=== PATIENT | male | born 1950 | race Caucasian/White ===

== ENCOUNTER 2017-11-01 11:53 | Emergency (ER) | payer MEDICARE, OTHER ==
[2017-11-01 12:06] VITALS: BP 138/72
--- NOTE | 2017-11-01 18:41 | ED ---
Roxy Fernandez Thomas, scribed for Mukund Salazar MD on 11/01/17 at 1304 . Influenza-Like Illness - HPI Summary HPI Summary: The patient is a 67 year old male complaining of a cough, erythematous eyes, and nasal discharge for the last week. The patient additionally complains of ear congestion. The patient had an episode of vomiting four days ago. The patient denies sore throat, nausea, ear pain, and diarrhea. He was treated for conjunctivitis four weeks ago. He is from [place]. - History of Current Complaint Chief Complaint: EDFluSymptoms Time Seen by Provider: 11/01/17 12:30 Hx Obtained From: Patient Onset/Duration: Lasting Weeks - 1, Still Present Severity: Moderate Associated Signs & Symptoms: Negative - sore throat, nausea, ear pain, diarrhea PMH/Surg Hx/FS Hx/Imm Hx Sensory History: Denies: Hx Legally Blind EENT History: Denies: Hx Deafness Infectious Disease History: No Infectious Disease History: Denies: Traveled Outside the in Last 30 Days - Family History Known Family History: Positive: Cardiac Disease - father [place] - Social History Alcohol Use: Rare Substance Use Type: Reports: None Smoking Status (MU): Never Smoked Tobacco Review of Systems Positive: Erythema Positive: Nasal Discharge. Negative: Sore Throat, Ear Ache Positive: Cough Positive: Vomiting. Negative: Diarrhea, Nausea All Other Systems Reviewed And Are Negative: Yes Physical Exam - Summary Physical Exam Summary: Appearance: The patient is well-nourished in no acute distress and in no acute pain. Skin: The skin is warm and dry and skin color reflects adequate perfusion. HEENT: The head is normocephalic and atraumatic. The pupils are equal and reactive. The conjunctivae are injected. Nares are patent and with nasal congestion. Mouth reveals moist mucous membranes and the throat is without erythema and exudate. The external ears are intact. The ear canals are patent and without drainage. The tympanic membranes are intact. Neck: the neck is supple with full range of motion and non-tender. There are no carotid bruits. There is no neck vein distension. Respiratory: Chest is non-tender. Lungs are clear to auscultation and breath sounds are symmetrical and equal. Cardiovascular: Heart is regular rate and rhythm.~There is no murmur or rub auscultated.~There is no peripheral edema and pulses are symmetrical and equal. Abdomen: The abdomen is soft and non-tender. There are normal bowel sounds heard in all four quadrants and there is no organomegaly palpated. Musculoskeletal: There is no back tenderness noted. Extremities are non-tender with full range of motion. There is good capillary refill. There is no peripheral edema or calf tenderness elicited. Neurological: Patient is alert and oriented to person, place and time. The patient has symmetrical motor strength in all four extremities. Cranial nerves are grossly intact. Deep tendon reflexes are symmetrical and equal in all four extremities. Psychiatric: The patient has an appropriate affect and does not exhibit any anxiety or depression. Triage Information Reviewed: Yes Vital Signs On Initial Exam: Initial Vitals Temp Pulse Resp BP Pulse Ox 99.6 F 89 20 138/72 97 11/01/17 11:58 11/01/17 11:58 11/01/17 11:58 11/01/17 11:58 11/01/17 11:58 Vital Signs Reviewed: Yes Diagnostics - Vital Signs Vital Signs Temp Pulse Resp BP Pulse Ox 11/01/17 11:58 99.6 F 89 20 138/72 97 - Laboratory Lab Results: Lab Results 11/01/17 Range/Units 13:00 Influenza A (Rapid) Positive H (Negative) Influenza B (Rapid) Negative (Negative) Lab Statement: Any lab studies that have been ordered have been reviewed, and results considered in the medical decision making process. Flu Symptom Course/Dx - Course Course Of Treatment: Mr. Chang presented with 6 days of URI symptoms including injected, runny eyes, nasal congestion and dry cough. He is in town because his grandson was just born yesterday. He was found to have influenza A and it is too late to treat him now but I recommended he stay away from the new baby and he says he already has been. - Diagnoses Provider Diagnoses: Influenza A Discharge - Discharge Plan Condition: Stable Disposition: HOME Patient Education Materials: Influenza (ED) Referrals: [facility] PHYSICIAN REFERRAL [Outside] - 3 Days Additional Instructions: Follow up with your primary care physician in three days. If you do not have a primary care provider, you can use the [facility] physician referral service to find one and make an appointment. Return to the emergency department for any new or worsening symptoms. Stay away from your grandchild until you are asymptomatic. The documentation as recorded by the Roxy pope Thomas accurately reflects the service I personally performed and the decisions made by me, Mukund Salazar MD.
== END 2017-11-01 13:37 | disposition home or self-care (01) ==
LOC: ED 11:53
DX: J10.1 Influenza due to other identified influenza virus with other respiratory manifestations (principal)
CPT/HCPCS: 87502; 99282